=== PATIENT | male | born 1975 | race Caucasian/White ===

== ENCOUNTER 2019-08-28 06:58 | Day surgery (SDC) | payer OTHER ==
[2019-08-28] MEDS ORDERED: Propofol 200 MG/20 ML SDV IV ONE (06:59)
[2019-08-28] MEDS ORDERED: Ondansetron 4 MG/2 ML SDV IV ONE (06:59)
[2019-08-28] MEDS ORDERED: Lidocaine 1% with EPINEPHrine 1:100,000 20 ML MDV INJECT ONE (06:59)
[2019-08-28] MEDS ORDERED: Ketorolac 30 MG/ML SDV IVPUSH ONE (06:59)
[2019-08-28] MEDS ORDERED: Lidocaine 2% 20 ML MDV ONE (06:59)
[2019-08-28] MEDS ORDERED: fentaNYL 100 MCG/2 ML SDV IV ONE (06:59)
[2019-08-28] MEDS ORDERED: Dexamethasone 4 MG/ML SDV IV ONE (06:59)
[2019-08-28] MEDS ORDERED: Midazolam 1 MG/ML 2 ML SDV IV ONE (06:59)
[2019-08-28] MEDS ORDERED: Lactated Ringers 1,000 ML IV SCH (07:30)
[2019-08-28] MEDS ORDERED: Lidocaine 1% with EPINEPHrine 1:100,000 20 ML MDV ONE (08:39)
[2019-08-28] MEDS ORDERED: Lidocaine 1% with EPINEPHrine 1:100,000 30 ML MDV INJECT ONE (08:44)
--- NOTE | 2019-08-28 13:10 | OR ---
DATE: 08/28/2019 PREOPERATIVE DIAGNOSIS: Ganglion cyst, right sacroiliac joint. POSTOPERATIVE DIAGNOSIS: Multiple small lipomas, right lower back. PROCEDURE: Excision of multiple lipomas of the back. ANESTHESIA: Local plus MAC. SPECIMEN: Lipomas. OPERATIVE FINDINGS: Multiple small lipomas over the sacroiliac joint on the right side of the back. INDICATION FOR PROCEDURE: This 44-year-old male has several small nodules he can feel that are right over the sacroiliac joint. These are most consistent with a ganglion cyst of the area. PROCEDURE IN DETAIL: After adequate preparation, local anesthesia was used over the palpable nodules in the SI joint. A skin incision was made and then the dissection was carried down into the subcutaneous tissue. I could palpate these multiple nodules. They felt like about the size of a pea, anywhere from 0.5 cm to 1 cm in diameter and there were 3 to 4 multiple ones in the same generalized area. I was able to excise all of these separate lipomas and get down to the bone sacrum itself and there is no evidence of a ganglion cyst in this area. This seemed to adequately take care of any of the nodules he would feel in this area. The hemostasis was controlled by cautery. The deeper wound was closed with 0 Vicryl suture and 4-0 Vicryl for the skin. [facility] /[id number]
== END 2019-08-28 10:35 | disposition home or self-care (01) ==
LOC: DL.SDS 06:58
PROVIDERS: ATTEND Surgery
DX: D17.1 Benign lipomatous neoplasm of skin and subcutaneous tissue of trunk (principal); G47.33 Obstructive sleep apnea (adult) (pediatric)
CPT/HCPCS: 00820; 21930; J1100; J1885; J2001; J2250; J2405; J2704; J3010; J7120

== ENCOUNTER 2019-10-13 07:52 | Emergency (ER) | payer OTHER ==
--- NOTE | 2019-10-13 08:12 | EDM.PDOC ---
ED HPI GENERAL MEDICAL PROBLEM - General Chief Complaint: Abdominal Pain Stated Complaint: GASTRO ISSUES Time Seen by Provider: 10/13/19 08:12 Source of Information: Reports: Patient, RN, RN Notes Reviewed History Limitations: Reports: No Limitations - History of Present Illness INITIAL COMMENTS - FREE TEXT/NARRATIVE: patient presents to ER with complaint of lower abdominal cramping and bloody stools since Monday night. Patient states before Monday night he was normal with bowel movements, stating he had a bowel movement about 20 minutes after eating. They had been normal consistency and he had a normal routine. Monday evening he began passing just blood. States he would have severe lower cramping as well as cramping in the back and would pass large amounts of thick blood. Patient denies regular alcohol use, does have social drinks. Denies smoking on a regular basis. Patient denies any health problems, denies taking any medications on a daily basis. Patient denies fever or chills, chest pains or shortness of breath, or vomiting. Patient admits to nausea with episodes of defecating blood, states he breaks out in a cold sweat as well. Patient states he feels there is no stool in the blood is just thick solid blood. Onset: Gradual Duration: Constant, Getting Worse Location: Reports: Abdomen Middle Abdomen Pain Score (Numeric/FACES): 6 - Related Data Allergies Allergy/AdvReac Type Severity Reaction Status Date / Time No Known Allergies Allergy Verified 10/13/19 08:09 Home Meds: Home Meds . [No Known Home Meds] 08/27/19 [History] Past Medical History HEENT History: Reports: None Cardiovascular History: Reports: None Respiratory History: Reports: Sleep Apnea Gastrointestinal History: Reports: None Genitourinary History: Reports: None Musculoskeletal History: Reports: Arthritis, Back Pain, Chronic Neurological History: Reports: Concussion Psychiatric History: Reports: None Endocrine/Metabolic History: Reports: None Hematologic History: Reports: None Immunologic History: Reports: None Dermatologic History: Reports: None - Infectious Disease History Infectious Disease History: Reports: None - Past Surgical History Head Surgeries/Procedures: Reports: None HEENT Surgical History: Reports: None Cardiovascular Surgical History: Reports: None GI Surgical History: Reports: Hernia, Abdominal Musculoskeletal Surgical History: Reports: None Social & Family History - Caffeine Use Caffeine Use: Reports: Tea Caffeine Use Comment: 8 oz daily ED ROS GENERAL - Review of Systems Review Of Systems: Comprehensive ROS is negative, except as noted in HPI. ED EXAM, GI/ABD - Physical Exam Exam: See Below Exam Limited By: No Limitations General Appearance: Alert, WD/WN, No Apparent Distress Eyes: Bilateral: Normal Appearance, EOMI Ears: Normal External Exam, Hearing Grossly Normal Nose: Normal Inspection Throat/Mouth: Normal Inspection, Normal Voice, No Airway Compromise Head: Atraumatic, Normocephalic Neck: Normal Inspection, Supple, Non-Tender, Full Range of Motion Respiratory/Chest: No Respiratory Distress, Lungs Clear, Normal Breath Sounds, No Accessory Muscle Use, Chest Non-Tender Cardiovascular: Normal Peripheral Pulses, Regular Rate, Rhythm, No Edema, No Gallop, No JVD, No Murmur, No Rub GI/Abdominal Exam: Normal Bowel Sounds, Soft, No Organomegaly, No Distention, No Abnormal Bruit, No Mass, Pelvis Stable, Tender (RLQ and LLQ, somewhat in RUQ , LUQ) (Male) Exam: Deferred Back Exam: Normal Inspection, Full Range of Motion, NT Extremities: Normal Inspection, Normal Range of Motion, Non-Tender, Normal Capillary Refill, No Pedal Edema Neurological: Alert, Oriented, CN II-XII Intact, Normal Cognition, Normal Gait, Normal Reflexes, No Motor/Sensory Deficits Psychiatric: Normal Affect, Normal Mood Skin Exam: Warm, Dry, Intact, Normal Color, No Rash Lymphatic: No Adenopathy Course - Vital Signs Last Recorded V/S: Last Vital Signs Temp 98.6 F 10/13/19 08:10 Pulse 94 10/13/19 08:10 Resp 16 10/13/19 08:10 BP 164/94 H 10/13/19 08:10 Pulse Ox 97 10/13/19 08:10 - Orders/Labs/Meds Orders: Active Orders 24 hr Category Date Time Status Peripheral IV Care [RC] . DIRECTED Care 10/13/19 08:26 Active CULTURE STOOL [RM] Stat Lab 10/13/19 09:23 Received HEP A AB, IGM [REF] Stat Lab 10/13/19 08:38 Received HEP A AB, TOTAL [REF] Stat Lab 10/13/19 08:38 Received SHIGA TOXIN 1 & 2 [MREF] Stat Lab 10/13/19 09:23 Received Sodium Chloride 0.9% [Saline Flush] Med 10/13/19 08:25 Active 10 ml FLUSH ASDIRECTED PRN Peripheral IV Insertion Adult [OM.PC] Stat Oth 10/13/19 08:25 Ordered Medication Orders Sodium Chloride (Saline Flush) 10 ml FLUSH ASDIRECTED PRN PRN Reason: Keep Vein Open Last Admin: 10/13/19 08:41 Dose: 10 ml Labs: Laboratory Tests 10/13/19 10/13/19 Range/Units 08:38 08:38 WBC 7.6 (5.0-10.0) 10^3/uL RBC 4.54 L (4.6-6.2) 10^6/uL Hgb 15.3 (14.0-18.0) g/dL Hct 43.6 (40.0-54.0) % MCV 96.0 (80-100) fL MCH 33.7 (27.0-34.0) pg MCHC 35.1 H (33.0-35.0) g/dL Plt Count 145 L (150-450) 10^3/uL Neut % (Auto) 69.9 (42.2-75.2) % Lymph % (Auto) 20.1 L (20.5-50.1) % [place] % (Auto) 8.9 H (2-8) % Eos % (Auto) 0.8 L (1.0-3.0) % Baso % (Auto) 0.3 (0.0-1.0) % Sodium 140 (136-145) mmol/L Potassium 4.1 (3.5-5.1) mmol/L Chloride 103 (98-107) mmol/L Carbon Dioxide 29 (21-32) mmol/L Anion Gap 12.1 (7-13) mEq/L BUN 17 (7-18) mg/dL Creatinine 1.51 H (0.70-1.30) mg/dL Est Cr Clr Drug Dosing 65.10 mL/min Estimated GFR (MDRD) 50 BUN/Creatinine Ratio 11.3 (No establ ref range) Glucose 105 H (74-99) mg/dL Calcium 8.1 L (8.5-10.1) mg/dL Total Bilirubin 0.6 (0.2-1.0) mg/dL AST 18 (15-37) U/L ALT 36 (16-63) U/L Alkaline Phosphatase 50 (46-116) U/L C-Reactive Protein 0.3 (0.0-0.9) mg/dL Total Protein 7.6 (6.4-8.2) g/dL Albumin 3.6 (3.4-5.0) g/dL Globulin 4.0 Albumin/Globulin Ratio 0.9 Stool for occult blood: POSITIVE Meds: Medications Generic Name Dose Route Start Last Admin Trade Name Freq PRN Reason Stop Dose Admin Sodium Chloride 10 ml 10/13/19 08:25 10/13/19 08:41 Saline Flush FLUSH 10 ml ASDIRECTED PRN Administration Keep Vein Open Discontinued Medications Generic Name Dose Route Start Last Admin Trade Name Freq PRN Reason Stop Dose Admin Ciprofloxacin/Dextrose 400 mg/ 200 mls @ 200 mls/hr 10/13/19 10:47 10/13/19 11:08 Premix IV 10/13/19 11:46 200 mls/hr ONETIME ONE Administration Sodium Chloride 1,000 mls @ 999 mls/hr 10/13/19 10:47 10/13/19 11:07 Normal Saline IV 10/13/19 11:47 999 mls/hr .BOLUS ONE Administration Metronidazole 500 mg/ Premix 100 mls @ 100 mls/hr 10/13/19 11:00 10/13/19 12: 06 IV 10/13/19 11:59 100 mls/hr ONETIME ONE Administration - Radiology Interpretation Free Text/Narrative:: CT abdomen/pelvis with contrast: FINDINGS: Liver: Normal. No mass. Gallbladder and bile ducts: Normal. No calcified stones. No ductal dilation. Pancreas: Normal. No ductal dilation. Spleen: The spleen is mildly prominent. Adrenals: Normal. No mass. Kidneys and ureters: Normal. No hydronephrosis. Stomach and bowel: The descending colon is collapsed but there appears to be moderate wall thickening with slight pericolonic inflammatory changes compatible with colitis. Appendix: The appendix is seen and is normal in appearance. Intraperitoneal space: Unremarkable. No free air. No significant fluid collection. Vasculature: Vascular calcifications are present. Lymph nodes: Unremarkable. No enlarged lymph nodes. Bladder: Unremarkable as visualized. Reproductive: Unremarkable as visualized. Bones/joints: Mild disc space narrowing at L4-L5 and moderate disc space narrowing at L5-S1 with vacuum cleft phenomenon. Soft tissues: Unremarkable. IMPRESSION: 1. The descending colon is collapsed but there appears to be moderate wall thickening with slight pericolonic inflammatory changes compatible with colitis. 2. Remainder of findings as described above. Thank you for allowing us to participate in the care of your patient. Dictated and Authenticated by: Aura Peña MD 10/13/2019 10:08 AM Central Time ([place] & [place]) See rad report - Re-Assessments/Exams Free Text/Narrative Re-Assessment/Exam: 10/13/19 10:58 Discussed patient case with Dr. Triana, Sourcing Engineer at [facility] in [place]. He advises Stool cultures be obtained and the patient be placed on antibiotics, and to follow up with his primary care provider tomorrow to have labs rechecked. Specifically rechecking hgb, liver enzymes, and kidney function. Departure - Departure Time of Disposition: 13:10 Disposition: Home, Self-Care 01 Condition: Fair Clinical Impression: Colitis - Discharge Information *PRESCRIPTION DRUG MONITORING PROGRAM REVIEWED*: No *COPY OF PRESCRIPTION DRUG MONITORING REPORT IN PATIENT SAMSON: No Instructions: Gastrointestinal Bleeding, [id number], Colitis Forms: ED Department Discharge Additional Instructions: Follow up TOMORROW with your primary care facility for lab recheck Labs to be done: CBC (Hemoglobin and Platelets), CMP (kidney function and liver enzymes) If labs are concerning, I discussed patient case with Dr. Triana, Sourcing Engineer at [facility] Drink plenty of water DO NOT take any anti-diarrheal medications Sepsis Event Note - Focused Exam Vital Signs: Vital Signs Temp Pulse Resp BP Pulse Ox 10/13/19 08:10 98.6 F 94 16 164/94 H 97 Date Exam was Performed: 10/13/19 Time Exam was Performed: 13:35 - My Orders Last 24 Hours: My Active Orders 10/13/19 08:25 Sodium Chloride 0.9% [Saline Flush] 10 ml FLUSH ASDIRECTED PRN Peripheral IV Insertion Adult [OM.PC] Stat 10/13/19 08:26 Peripheral IV Care [RC] . DIRECTED 10/13/19 08:38 HEP A AB, IGM [REF] Stat HEP A AB, TOTAL [REF] Stat 10/13/19 09:23 CULTURE STOOL [RM] Stat SHIGA TOXIN 1 & 2 [MREF] Stat - Assessment/Plan Last 24 Hours: My Active Orders 10/13/19 08:25 Sodium Chloride 0.9% [Saline Flush] 10 ml FLUSH ASDIRECTED PRN Peripheral IV Insertion Adult [OM.PC] Stat 10/13/19 08:26 Peripheral IV Care [RC] . DIRECTED 10/13/19 08:38 HEP A AB, IGM [REF] Stat HEP A AB, TOTAL [REF] Stat 10/13/19 09:23 CULTURE STOOL [RM] Stat SHIGA TOXIN 1 & 2 [MREF] Stat
[2019-10-13] MEDS ORDERED: Sodium Chloride 0.9% 10 ML Syringe FLUSH PRN (08:25)
[2019-10-13 09:05] LABS: ANION GAP 12.1 mEq/L (7-13)
[2019-10-13] MEDS ORDERED: Sodium Chloride 0.9% 1,000 ML IV ONE (10:47)
[2019-10-13] MEDS ORDERED: Ciprofloxacin in D5W 400 MG in Premix Bag 1 BAG IV ONE ×2 (10:47)
[2019-10-13] MEDS ORDERED: metroNIDAZOLE/Normal Saline 500 MG in Premix Bag 100 BAG IV ONE (11:00)
== END 2019-10-13 13:05 | disposition home or self-care (01) ==
LOC: DL.ED 07:52
DX: K52.9 Noninfective gastroenteritis and colitis, unspecified (principal); M19.90 Unspecified osteoarthritis, unspecified site; Z90.49 Acquired absence of other specified parts of digestive tract
CPT/HCPCS: 36415; 74176; 80053; 82272; 85025; 86140; 86708; 86709; 87045; 87046; 87899; 96365; 96367; 99284; J0744; J3490; J7030